=== PATIENT | male | born 1980 | race Caucasian/White ===

== ENCOUNTER 2017-03-23 02:42 | Emergency (ER) | payer OTHER ==
[2017-03-23 02:50] VITALS: RESP 18
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
--- NOTE | 2017-03-23 03:14 | XR ---
EXAM: XR Left Ribs and AP Chest, 3 or More Views CLINICAL HISTORY: Reason: trauma TECHNIQUE: Frontal and oblique views of the left ribs and frontal view of the chest. COMPARISON: No relevant prior studies available. FINDINGS: Lungs: Unremarkable. No consolidation. Pleural space: Unremarkable. No pneumothorax. Heart: Unremarkable. No cardiomegaly. Mediastinum: Unremarkable. Bones/joints: Unremarkable. No acute fracture. IMPRESSION: No acute or healing fracture or malalignment. No acute cardio pulmonary disease.
[2017-03-23 04:07] VITALS: BP 134/56; PULSE 56; TEMP 97.5
== END 2017-03-23 04:07 | disposition home or self-care (01) ==
LOC: EC 02:42
DX: S29.9XXA Unspecified injury of thorax, initial encounter (principal); V18.4XXA Pedal cycle driver injured in noncollision transport accident in traffic accident, initial encounter; Y93.55 Activity, bike riding; F17.200 Nicotine dependence, unspecified, uncomplicated
CPT/HCPCS: 93005; 99285

== ENCOUNTER 2018-02-17 17:35 | Emergency (ER) | payer BC, OTHER ==
[2018-02-17] MEDS ORDERED: SODIUM CHLORIDE 0.9% 1,000 ML IV STA ×2 (17:52)
[2018-02-17] MEDS ORDERED: ALBUTEROL NEBULIZED 2.5 MG/3 ML INHALATION STA (17:54)
--- NOTE | 2018-02-17 17:58 | ED ---
Chest Pain HPI - General Chief Complaint: Chest Pain Stated Complaint: Chest pain/sob Time Seen by Provider: 02/17/18 17:42 Source: patient, RN notes reviewed, old records reviewed Mode of arrival: ambulatory Limitations: no limitations - History of Present Illness Initial Comments: This patient is a 38-year-old male chief complaint of intermittent shortness of breath episodes for the past 3 weeks. He states that he has no significant chest pain at this time. He reports that when he does have this episodes of difficulty breathing he starts some tightness in his chest. Patient states that he cannot figure out a pattern to this. He states that it feels like at times he is unable to get a full deep breath. No previous history of asthma. Denies any cardiac history. He was a previous smoker and quit a few years ago. He occasionally will smoke a cigar from time to time this time. Patient states that he has no history of nausea, vomiting, diaphoresis, abdominal pain, changes in urination or bowel habits. He reports he has no headache, sore throat or sinus congestion. He reports he occasionally does have a cough. - Related Data Previous Rx's Medication Instructions Recorded Albuterol Inhaler [Ventolin Hfa 1 - 2 puff INHALATION Q6HR PRN #1 02/17/18 Inhaler] inhaler methylPREDNISolone Dose Pack 4 mg PO DIRECTED #21 package 02/17/18 [Medrol Dose Pack] Allergies Allergy/AdvReac Type Severity Reaction Status Date / Time No Known Allergies Allergy Verified 02/17/18 18:04 Review of Systems ROS Statement: Those systems with pertinent positive or pertinent negative responses have been documented in the HPI. ROS Other: All systems not noted in ROS Statement are negative. EKG Findings - EKG Comments: EKG Findings:: EKG shows normal sinus rhythm, ventricular rate of 65 beats were minute. AL interval 154 ms. QRS duration 110 ms. QT QTc is 394/409 ms. No evidence of ST elevation or T-wave inversion. No notes of atrioventricular ventricular arrhythmias. Past Medical History Past Medical History: No Reported History History of Any Multi-Drug Resistant Organisms: None Reported Past Surgical History: Orthopedic Surgery Additional Past Surgical History / Comment(s): left shoulder Past Psychological History: No Psychological Hx Reported Smoking Status: Former smoker Past Alcohol Use History: Occasional Past Drug Use History: None Reported General Exam - General Exam Comments Initial Comments: This is a well-appearing 38-year-old male. No distress. Limitations: no limitations General appearance: alert, in no apparent distress Head exam: Present: atraumatic, normocephalic, normal inspection Eye exam: Present: normal appearance, PERRL, EOMI. Absent: scleral icterus, conjunctival injection, periorbital swelling ENT exam: Present: normal exam, mucous membranes moist Neck exam: Present: normal inspection. Absent: tenderness, meningismus, lymphadenopathy Respiratory exam: Present: decreased breath sounds (Decreased breath sounds on the left lung.). Absent: normal lung sounds bilaterally, respiratory distress, wheezes, rales, rhonchi, stridor Cardiovascular Exam: Present: regular rate, normal rhythm, normal heart sounds. Absent: systolic murmur, diastolic murmur, rubs, gallop, clicks GI/Abdominal exam: Present: soft, normal bowel sounds. Absent: distended, tenderness, guarding, rebound, rigid Extremities exam: Present: normal inspection, full ROM, normal capillary refill. Absent: tenderness, pedal edema, joint swelling, calf tenderness Back exam: Present: normal inspection Neurological exam: Present: alert, oriented X3, CN II-XII intact Psychiatric exam: Present: normal affect, normal mood Skin exam: Present: warm, dry, intact, normal color. 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 Patient states he has no significant chest pain at this time. His reports that occasionally filling continue the deep breath. Patient has a previous history of smoking. Chest x-ray shows no acute process. Patient's labwork was reviewed and negative for any significant amount of speed a negative troponin. Negative dimer. EKG shows no significant changes. Patient reports he feels better after receiving the breathing treatment. Discussed at this time patient likely has reactive asthmatic. Patient will be on steroids. We'll give the patient albuterol inhaler. Discussed appropriate follow-up with primary care physicians. Patient is history plan will comply. Return parameters were discussed. Disposition Clinical Impression: Dyspnea Disposition: HOME SELF-CARE Condition: Good Instructions: Dyspnea (ED) Additional Instructions: Patient advised to follow-up with primary care physician. Take the inhaler and use steroids as directed. Return to emergency department if any alarming signs or symptoms occur. Prescriptions: Albuterol Inhaler [Ventolin Hfa Inhaler] 1 - 2 puff INHALATION Q6HR PRN #1 inhaler PRN Reason: Shortness Of Breath methylPREDNISolone Dose Pack [Medrol Dose Pack] 4 mg PO DIRECTED #21 package Referrals: Amarjit Ochoa DO [Primary Care Provider] - 1-2 days Time of Disposition: 19:37
[2018-02-17 18:23] LABS: Basophils # (A) 0.1 k/uL (0-0.2); Basophils % (A) 1 %; Eosinophils # (A) 0.2 k/uL (0-0.7); Eosinophils % (A) 2 %; HCT 44.5 % (39.0-53.0); HGB 16.1 gm/dL (13.0-17.5); Lymphocytes # (A) 1.4 k/uL (1.0-4.8); Lymphocytes % (A) 16 %; MCH 31.3 pg (25.0-35.0); MCHC 36.1 g/dL (31.0-37.0); MCV 86.6 fL (80.0-100.0); Mean Platelet Volume 7.1; Monocytes # (A) 0.5 k/uL (0-1.0); Monocytes % (A) 6 %; Neutrophils # (A) 6.4 k/uL (1.3-7.7); Neutrophils % (A) 74 %; Platelet Count 189 k/uL (150-450); RBC 5.13 m/uL (4.30-5.90); RDW 12.4 % (11.5-15.5); WBC 8.6 k/uL (3.8-10.6)
[2018-02-17 18:33] LABS: ALT 45 U/L (21-72); AST 23 U/L (17-59); Albumin 4.6 g/dL (3.5-5.0); Alkaline Phosphatase 85 U/L (38-126); Anion Gap 16 mmol/L; Blood Urea Nitrogen 17 mg/dL (9-20); Carbon Dioxide 28 mmol/L (22-30); Chloride 101 mmol/L (98-107); D-Dimer 0.2 mg/L FEU (<0.60); Glucose 103 mg/dL (74-99); Magnesium 1.9 mg/dL (1.6-2.3); Potassium 3.9 mmol/L (3.5-5.1); Sodium 145 mmol/L (137-145); Total Bilirubin 0.6 mg/dL (0.2-1.3); Total Protein 7.6 g/dL (6.3-8.2)
[2018-02-17 18:38] LABS: Partial Thromboplastin Time 23.1 sec (22.0-30.0); Prothrombin Time 9.6 sec (9.0-12.0)
--- NOTE | 2018-02-17 19:17 | XR ---
EXAMINATION: XR chest 2V DATE AND TIME: 02/17/2018 6:54 PM ORDERING PROVIDER: Minerva Eastman CLINICAL INDICATION: Chest Pain TECHNIQUE: PA and lateral COMPARISON: None. DESCRIPTION: The lungs are clear. The pleural spaces are negative. The cardiac silhouette is not enlarged. The mediastinal and pleural silhouettes are unremarkable. The skeletal structures are intact without focal findings. The soft tissues are unremarkable. IMPRESSION: NO ACUTE PROCESS.
[2018-02-17 19:33] VITALS: BP 143/77; PULSE 63; RESP 18
[2018-02-17 19:46] VITALS: TEMP 98.1
== END 2018-02-17 19:48 | disposition home or self-care (01) ==
LOC: EC 17:35
DX: R06.02 Shortness of breath (principal); R07.9 Chest pain, unspecified; R05 Cough; Z87.891 Personal history of nicotine dependence
CPT/HCPCS: 36415; 71046; 80053; 83735; 84484; 85025; 85379; 85610; 85730; 93005; 94640; 96360; 96361; 99285

== ENCOUNTER → 2018-12-10 | Outpatient (CLI) | payer BC ==
--- NOTE | 2018-12-10 14:45 | PN ---
PROGRESS NOTE A 38-year-old male patient was seen in consultation because of chronic insomnia. Back then, the patient reported difficulty in sleep initiation and maintenance. His symptoms of chronic insomnia has been going on since the teenage years. His symptoms have got worse and based on that, the patient was referred to me. During my evaluation, I had a suspicion for obstructive sleep apnea. Based on that, I ordered a home sleep study that showed mild DERECK with an AHI of 9.6, slightly worse in the supine body position body position with an AHI of 14.6. No major nocturnal oxygen desaturation encountered. The patient was started on 10 mg of Ambien for sleep induction and maintenance. He responded very nicely to the Ambien. He is able to initiate and maintain sleep without any major difficulties. No major hypersomnia or sleepiness during the day. He seems to be more accurate in terms of a sleep cycle. He is at the point where he is taking his Ambien only twice a week. He tries to go to bed without taking the medication. However, if he is unable to initiate sleep, he will take a tablet of Ambien. No sleepwalking. No undue side effects related to the medication. No history of substance abuse. No history of alcoholism. No history of anxiety. No history of any traumatic events. No PTSD. No bipolar disorder. No other formal psychiatric disorder. PHYSICAL EXAMINATION: BP is 129/72, pulse 80, respirations 16, temperature 98.7 saturation 96% on room air. GENERAL APPEARANCE: Calm, comfortable. Head is atraumatic, normocephalic. NECK: Supple. No JVD, no goiter or neck masses. LUNGS: Clear to auscultation. HEART: Sounds regular rate and rhythm. Normal S1, S2. No S3, S4. No murmurs. ABDOMEN: Soft, nontender. No organomegaly. EXTREMITIES: No edema. No cyanosis or clubbing. IMPRESSION: 1. Chronic insomnia improving with behavior modification, sleep hygiene implementation and at the same time, the patient is using Ambien for sleep induction and maintenance on a p.r.n. basis. 2. Mild obstructive sleep apnea, apnea-hypopnea index of 9.6. 3. Mild nocturnal oxygen saturation. 4. Obesity. PLAN: 1. Encourage weight loss. 2. Continue maintaining good sleep hygiene measures. 3. Dropped the Ambien dose to 5 mg. The patient was given a 60 tablet supply that he will be taken on an as-needed basis for the sleep induction. 4. Avoid alcoholic beverages and caffeinated beverages late at night. 5. See me back in 6-8 months' time in followup. MMODL / IJN: [id number] /
== END | disposition home or self-care (01) ==
LOC: SLEEP 13:08
PROVIDERS: ATTEND Internal Medicine Critical Care Medicine
DX: Z53.9 Procedure and treatment not carried out, unspecified reason (principal)

== ENCOUNTER 2019-09-29 20:18 | Emergency (ER) | payer BC ==
--- NOTE | 2019-09-29 20:26 | ED ---
Chest Pain HPI - General Chief Complaint: Chest Pain Stated Complaint: Chest Pain Time Seen by Provider: 09/29/19 20:25 Source: patient, RN notes reviewed, old records reviewed Mode of arrival: ambulatory Limitations: no limitations - History of Present Illness Initial Comments: This is a 31-year-old male the ER patient presents today for evaluation of chest pain. Left and right-sided chest pain is been all 3 for a few months ago. Also blew the past week. taking a nap today was on his right [id number] to his left improvement in his right side of his pain left-sided his chest. patient is an ex-smoker of 6 years, occasional drinker with no other significant medical history takes no medications. patient denies history of high blood pressure cholesterol or diabetes. no family history of heart disease. patient has no shortness of breath ago episodes of swelling, exercise or activity intolerance is normal MD Complaint: chest pain (Atypical) -: month(s) Pain Location: left chest Pain Radiation: LUE Severity: moderate Severity scale (1-10): 4 Quality: heaviness Consistency: constant Improves With: nothing Worsens With: nothing Context: recent illness Other Symptoms: cough Treatments Prior to Arrival: none - Related Data Home Medications Medication Instructions Recorded Confirmed Zolpidem Tartrate [Ambien] 5 mg PO HS PRN 09/29/19 09/29/19 Allergies Allergy/AdvReac Type Severity Reaction Status Date / Time No Known Allergies Allergy Verified 09/29/19 20:41 Review of Systems ROS Statement: Those systems with pertinent positive or pertinent negative responses have been documented in the HPI. ROS Other: All systems not noted in ROS Statement are negative. EKG Findings - EKG Comments: EKG Findings:: EKG shows sinus rhythm rate of 64, PA 154, QRS 106, QTc 400 Past Medical History Past Medical History: No Reported History History of Any Multi-Drug Resistant Organisms: None Reported Past Surgical History: Orthopedic Surgery Additional Past Surgical History / Comment(s): left shoulder Past Psychological History: No Psychological Hx Reported Smoking Status: Former smoker Past Alcohol Use History: Occasional Past Drug Use History: None Reported General Exam Limitations: no limitations General appearance: alert, in no apparent distress Head exam: Present: atraumatic, normocephalic, normal inspection Eye exam: Present: normal appearance, PERRL, EOMI. Absent: scleral icterus, conjunctival injection, periorbital swelling ENT exam: Present: normal exam, mucous membranes moist Neck exam: Present: normal inspection. Absent: tenderness, meningismus, lymphadenopathy Respiratory exam: Present: normal lung sounds bilaterally. Absent: respiratory distress, wheezes, rales, rhonchi, stridor Cardiovascular Exam: Present: regular rate, normal rhythm, normal heart sounds. Absent: systolic murmur, diastolic murmur, rubs, gallop, clicks GI/Abdominal exam: Present: soft, normal bowel sounds. Absent: distended, tenderness, guarding, rebound, rigid Extremities exam: Present: normal inspection, full ROM, normal capillary refill. Absent: tenderness, pedal edema, joint swelling, calf tenderness Back exam: Present: normal inspection Neurological exam: Present: alert, oriented X3, CN II-XII intact Psychiatric exam: Present: normal affect, normal mood Skin exam: Present: warm, dry, intact, normal color. 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 Patient will be discharged home Disposition Clinical Impression: Atypical chest pain, Chest pain Disposition: HOME SELF-CARE Condition: Good Instructions (If sedation given, give patient instructions): Chest Pain (ED) Is patient prescribed a controlled substance at d/c from ED?: No Referrals: Amarjit Ochoa DO [Primary Care Provider] - 1-2 days
[2019-09-29] MEDS ORDERED: SODIUM CHLORIDE 0.9% 1,000 ML IV STA (20:54)
[2019-09-29 21:10] LABS: Basophils # (A) 0.2 k/uL (0-0.2); Basophils % (A) 2 %; Eosinophils # (A) 0.2 k/uL (0-0.7); Eosinophils % (A) 3 %; HCT 43.5 % (39.0-53.0); HGB 15.1 gm/dL (13.0-17.5); Lymphocytes # (A) 1.5 k/uL (1.0-4.8); Lymphocytes % (A) 21 %; MCH 30.6 pg (25.0-35.0); MCHC 34.8 g/dL (31.0-37.0); Mean Platelet Volume 6.1; Monocytes # (A) 0.5 k/uL (0-1.0); Monocytes % (A) 7 %; Neutrophils # (A) 4.7 k/uL (1.3-7.7); Neutrophils % (A) 65 %; Platelet Count 199 k/uL (150-450); RBC 4.94 m/uL (4.30-5.90); RDW 12.4 % (11.5-15.5); WBC 7.2 k/uL (3.8-10.6)
[2019-09-29 21:24] LABS: D-Dimer <0.17 mg/L FEU (<0.60); INR 0.9 (<1.2); Partial Thromboplastin Time 23.8 sec (22.0-30.0)
--- NOTE | 2019-09-29 21:26 | XR ---
EXAMINATION TYPE: XR chest 2V DATE OF EXAM: 09/29/2019 COMPARISON: Chest x-ray February 17, 2018. HISTORY: Chest pain. TECHNIQUE: Frontal and lateral views of the chest are obtained. FINDINGS: Overlying EKG leads are present. There is no focal air space opacity, pleural effusion, or pneumothorax seen. The cardiac silhouette size is within normal limits. The osseous structures are intact. IMPRESSION: No acute process.
[2019-09-29 21:38] LABS: African American GFR (CKD) >90 (>60 ml/min/1.73 sqM); Anion Gap 9 mmol/L; Blood Urea Nitrogen 20 mg/dL (9-20); Calcium 9.7 mg/dL (8.4-10.2); Carbon Dioxide 27 mmol/L (22-30); Chloride 103 mmol/L (98-107); Glucose 103 mg/dL (74-99); Magnesium 1.9 mg/dL (1.6-2.3); Potassium 4.1 mmol/L (3.5-5.1); Sodium 139 mmol/L (137-145); Total Protein 7.2 g/dL (6.3-8.2)
[2019-09-29 21:39] LABS: ALT 49 U/L (21-72); AST 27 U/L (17-59); Albumin 4.4 g/dL (3.5-5.0); Alkaline Phosphatase 59 U/L (38-126); Total Bilirubin 0.4 mg/dL (0.2-1.3)
[2019-09-29 22:42] VITALS: BP 140/83; PULSE 61; RESP 16; TEMP 98
== END 2019-09-29 22:51 | disposition home or self-care (01) ==
LOC: EC 20:18
DX: R07.89 Other chest pain (principal); M79.602 Pain in left arm; R05 Cough; Z87.891 Personal history of nicotine dependence
CPT/HCPCS: 36415; 71046; 80053; 83690; 83735; 83880; 84484; 85025; 85379; 85610; 85730; 93005; 96360; 99285

== ENCOUNTER → 2020-07-16 | Outpatient (CLI) | payer BC ==
--- NOTE | 2020-07-16 14:44 | US ---
EXAMINATION TYPE: US scrotum with doppler. Grayscale and color Doppler Duplex imaging performed of t he scrotum. DATE OF EXAM: 07/16/2020 COMPARISON: NONE CLINICAL HISTORY: N50.89 L TESTICULAR MASS. Patient states no complaints EXAM MEASUREMENTS: TESTICLES: Right Testicle: 5.1 x 4.2 x 3.0 cm Left Testicle: 5.5 x 3.6 x 2.7 cm EPIDIDYMIS HEAD: Right Epididymis: 1.1 x 1.2 x 0.9 cm Left Epididymis: 1.3 x 1.2 x 1.3 cm Doppler performed to assess for testicular vascularity; good bilateral color flow and waveforms are s een. There is no evidence of testicular torsion. Presence of hydroceles: no Presence of varicoceles: no No masses seen IMPRESSION: 1. No evidence of testicular mass.
== END | disposition home or self-care (01) ==
LOC: RADUSWWP 13:46
PROVIDERS: ATTEND Urology
DX: N50.89 Other specified disorders of the male genital organs (principal)
CPT/HCPCS: 76870; 93975

== ENCOUNTER → 2020-09-16 | Outpatient (CLI) | payer BC | END | disposition home or self-care (01) | LOC: LABWHC1 12:50 | PROVIDERS: ATTEND Internal Medicine Infectious Disease | DX: U07.1 COVID-19 (principal) | CPT/HCPCS: U0003; C9803 ==

== ENCOUNTER → 2021-10-07 | Outpatient (CLI) | payer BC ==
--- NOTE | 2021-10-08 15:26 | US ---
EXAMINATION TYPE: US scrotum with doppler. Grayscale and color Doppler Duplex imaging performed of t gillian scrotum. DATE OF EXAM: 10/07/2021 COMPARISON: US CLINICAL HISTORY: N50.89 Other specified disorders of the male organ. EXAM MEASUREMENTS: TESTICLES: Right Testicle: 4.8 x 3.0 x 3.5 cm Left Testicle: 5.1 x 2.2 x 3.5 cm EPIDIDYMIS HEAD: Right Epididymis: 1.2 cm Left Epididymis: 0.8 cm Doppler performed to assess for testicular vascularity; good bilateral color flow and waveforms are s een. There is no evidence of testicular torsion. Presence of hydroceles: Right measuring 1.8 x 0.7 x 1.9cm Presence of varicoceles: Somewhat dilated vessels on the left At patients lump is a hypoechoic oval structure measuring 1.1 x 0.8 x 1.1cm IMPRESSION: 1. Hypoechoic ill-defined nonvascular nodule at the palpable abnormality left hemiscrotum. 2. No suspicious testicular torsion.
== END | disposition home or self-care (01) ==
LOC: RADUSWWP 15:15
PROVIDERS: ATTEND Family Medicine
DX: N50.89 Other specified disorders of the male genital organs (principal); I86.1 Scrotal varices; N43.3 Hydrocele, unspecified
CPT/HCPCS: 76870; 93975

== ENCOUNTER → 2022-10-18 | Outpatient (CLI) | payer BC ==
--- NOTE | 2022-10-18 14:39 | US ---
EXAMINATION TYPE: US scrotum with doppler. Grayscale and color Doppler Duplex imaging performed of kamilla french scrotum. DATE OF EXAM: 10/18/2022 COMPARISON: US 2020 CLINICAL HISTORY: N50.819 TESTICULAR PAIN. Testicular pain on the right side. Patient feels lump on r ight side. Hx vasectomy 09/22/2022. EXAM MEASUREMENTS: TESTICLES: Right Testicle: 5.3 x 3.9 x 2.8 cm Left Testicle: 5.4 x 3.3 x 2.6 cm EPIDIDYMIS HEAD: Right Epididymis: 0.8 x 1.0 x 1.5 cm Left Epididymis: 0.6 x 1.6 x 1.1 cm Doppler performed to assess for testicular vascularity; bilateral color flow and waveforms are seen. Presence of hydroceles: Yes, right: 3.5 x 2.7 x 0.9 cm. Left: 2.3 x 1.8 x 0.7 cm. Presence of varicoceles: Prominent vessels seen bilaterally lateral to testicles. Prominent vessels also seen at patient's area of concern within the right groin adjacent to the right testicle measuring 4 mm. Inferior to the left testicle, hypoechoic area was seen: 1.2 x 1.5 x 1.0 cm. IMPRESSION: 1. Bilateral hydroceles. 2. Bilateral varicoceles.
== END | disposition home or self-care (01) ==
LOC: RADUSWWP 13:29
PROVIDERS: ATTEND Family Medicine
DX: N43.3 Hydrocele, unspecified (principal); I86.1 Scrotal varices
CPT/HCPCS: 76870; 93975

== ENCOUNTER → 2022-11-23 | Outpatient (CLI) | payer BC ==
--- NOTE | 2022-11-23 15:36 | US ---
EXAMINATION TYPE: US renals and bladder DATE OF EXAM: 11/23/2022 COMPARISON: NONE CLINICAL HISTORY: R319 HEMATURIA UNSP. Hematuria EXAM MEASUREMENTS: Right Kidney: 11.6 x 6.0 x 5.3 cm Left Kidney: 13.7 x 6.0 x 5.1 cm Right Kidney: No hydronephrosis or masses seen Left Kidney: Cystic area seen lower pole 1.3 x 1.0 x .8 cm. Bladder: Anechoic Bilateral Jets seen: Right only. IMPRESSION: 1. Simple appearing left renal cyst inferior pole
== END | disposition home or self-care (01) ==
LOC: RADUSWWP 14:32
PROVIDERS: ATTEND Family Medicine
DX: N28.1 Cyst of kidney, acquired (principal); R31.9 Hematuria, unspecified
CPT/HCPCS: 76770

== ENCOUNTER → 2022-12-27 | Outpatient (CLI) | payer BC ==
--- NOTE | 2022-12-27 12:00 | CT ---
EXAMINATION TYPE: CT urogram wo/w con CT DLP: 4133 mGycm, Automated exposure control for dose reduction was used. DATE OF EXAM: 12/27/2022 11:51 AM COMPARISON: Ultrasound 11/23/2022 CLINICAL INDICATION:Male, 42 years old with history of R31.0 Gross hematuria, Gross hematuria TECHNIQUE: Urogram with imaging of the abdomen and pelvis. Coronal and sagittal reformats were performed. 2D and 3D reconstructions are performed to assist visualization of the urinary tract on a separate workstat ion. Contrast used:100 ml mL of Isovue 300 with IV Contrast, Oral contrast used: None. FINDINGS: LOWER CHEST: No significant findings. GENITOURINARY: RIGHT KIDNEY AND URETER: Nonobstructing 5 mm calculus No hydronephrosis or hydroureter. No renal mass or other lesions. No urothelial lesions: no filling defect, dilation, stricture or wall thickening. LEFT KIDNEY AND URETER: Nonobstructing 2 mm density suggestive of early calculus. No hydronephrosis o r hydroureter. No renal mass, left renal cyst.. No urothelial lesions: no filling defect, dilation, s tricture or wall thickening. URINARY BLADDER: Focal abutting the right posterior aspect of the bladder suggestive of diverticula. 14 image 84. Limited evaluation of the anterior bladder wall secondary to lack of excreted IV contras t. REPRODUCTIVE: Unremarkable. ABDOMEN LIVER: Indeterminate low-density area within the right hepatic lobe somewhat tubular morphology. No e vidence of enhancement on postcontrast imaging. GALLBLADDER AND BILE DUCTS: Unremarkable PANCREAS: Unremarkable. SPLEEN: Unremarkable. ADRENAL GLANDS: Unremarkable. STOMACH AND BOWEL: . No evidence of bowel obstruction. PERITONEUM: No evidence of pneumoperitoneum, free fluid, or adenopathy. VASCULATURE: No evidence of aortic aneurysm. Scattered mild atherosclerosis of the arterial vasculatu re. MUSCULOSKELETAL: No acute osseous abnormalities LYMPH NODES: No gross evidence for lymphadenopathy. SOFT TISSUE/ABDOMINAL WALL: Fat-containing umbilical hernia. IMPRESSION: 1. No evidence of obstructive uropathy or urothelial lesion. 2. Nonobstructing bilateral renal calculi. 3. Focal right posterior extremity contrast outpouching suggestive of diverticula. 4. Indeterminate right hepatic lobe low-density somewhat lobulated area could represent clustered cy sts versus focal dilated ducts. Consider further evaluation with MRI liver mass protocol.
== END | disposition home or self-care (01) ==
LOC: RADCTMAIN 09:35
PROVIDERS: ATTEND Urology
DX: N20.0 Calculus of kidney (principal); R31.0 Gross hematuria
CPT/HCPCS: 74178; 74400; Q9967

== ENCOUNTER → 2023-05-04 | Outpatient (CLI) | payer BC ==
--- NOTE | 2023-05-04 23:28 | MR ---
EXAMINATION TYPE: MR abdomen wo/w con DATE OF EXAM: 05/04/2023 10:10 PM INDICATION: Patient age:Male; 43 years old; Reason for study: K76.9; [facility]. F/U, abnormal prior MRI & CT COMPARISON: CT scan abdomen from 12/27/2022, MRI 01/27/2023. TECHNIQUE: Multiplanar multi-sequence imaging was performed without contrast. Post contrast imaging was performed. Post IV contrast subtraction images were also submitted for review. IV Contrast: 12 cc Gadavist FINDINGS: LOWER CHEST: No gross irregularity. ABDOMEN Liver: Hepatic steatosis. Right hepatic lobe high T2 signal heterogenous loculated appearing lesion m easures similarly at 2.8 x 2.6 x 1.9 cm in segment 5/6 1 measuring similarly. Somewhat peripheral enh ancement with persistent cystic changes which do not enhance. Another high T2 area within the right hepatic lobe segment 8. Measuring 11 mm which progressively enh ances on delayed imaging. Gallbladder and Bile ducts: Unremarkable. Pancreas: Unremarkable. Spleen: Unremarkable. Adrenal glands: Unremarkable. Kidneys: High T2 signal cysts bilaterally. Stomach and Bowel: Unremarkable as visualized. Appendix is normal. Peritoneum: No evidence of pneumoperitoneum, free fluid, or adenopathy. High T2 signal posterior to the aorta tubular morphology could relate to dilated lymphatic drainage ducts. Vasculature: Unremarkable. No aortic aneurysm. Musculoskeletal: The osseous structures appear intact. Abdominal wall: Fat-containing umbilical hernia. IMPRESSION: 1. Stable right hepatic lobe segment 5/6 measuring 2.8 cm finding could could relate to biliary cyst adenoma , ductal stricture, cluster of cysts, hamartoma versus other. Correlate for primary sclerosin g cholangitis with serum markers. 2. Stable Hepatic segment 8, 11 mm hemangioma. 3. High T2 signal posterior to the aorta tubular morphology could relate to dilated lymphatic draina ge ducts.
== END | disposition home or self-care (01) ==
LOC: RADMRIMAIN 21:20
PROVIDERS: ATTEND Nurse Practitioner Family
DX: D18.03 Hemangioma of intra-abdominal structures (principal); K76.0 Fatty (change of) liver, not elsewhere classified; K42.9 Umbilical hernia without obstruction or gangrene; K76.89 Other specified diseases of liver
CPT/HCPCS: 74183; A9585

== ENCOUNTER → 2023-06-21 | Outpatient (CLI) | payer BC ==
--- NOTE | 2023-06-21 15:01 | US ---
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
== END | disposition home or self-care (01) ==
LOC: RADUSWWP 08:19
PROVIDERS: ATTEND Family Medicine
DX: I89.9 Noninfective disorder of lymphatic vessels and lymph nodes, unspecified (principal)
CPT/HCPCS: 76706

== ENCOUNTER → 2023-09-05 | Outpatient (CLI) | payer BC ==
--- NOTE | 2023-09-05 10:23 | US ---
EXAMINATION TYPE: US scrotum with doppler. Grayscale and color Doppler Duplex imaging performed of t he scrotum. DATE OF EXAM: 09/05/2023 COMPARISON: Multiple prior US CLINICAL INDICATION: Male, 43 years old with history of N43.3 HYDROCELE; F/U from prior scans, pt sta ping palpable lump left lower testicle EXAM MEASUREMENTS: TESTICLES: Right Testicle: 4.5 x 2.6 x 4.0 cm Left Testicle: 4.7 x 2.2 x 3.5 cm EPIDIDYMIS HEAD: Right Epididymis: 1.4 cm Left Epididymis: 1.2 cm Doppler performed to assess for testicular vascularity; good bilateral color flow and waveforms are s een. There is no evidence of testicular torsion. Presence of hydroceles: No Presence of varicoceles: No Hypoechoic area inferior to left testicle at pt's palpable= 1.2 x 1.1 x 1.3 cm, similar in appearance when compared to prior IMPRESSION: 1. Hypoechoic lesion inferior to the left testicle at the patient's palpable location is unchanged re lative to prior study. Clinical correlation advised.
== END | disposition home or self-care (01) ==
LOC: RADUSWWP 09:40
PROVIDERS: ATTEND Family Medicine
DX: N50.9 Disorder of male genital organs, unspecified (principal); N43.3 Hydrocele, unspecified
CPT/HCPCS: 76870; 93975

== ENCOUNTER → 2024-01-07 | Outpatient (CLI) | payer BC ==
--- NOTE | 2024-01-08 08:21 | XR ---
EXAMINATION TYPE: XR knee complete LT DATE OF EXAM: 01/07/2024 5:24 PM CLINICAL INDICATION:Male, 43 years old with history of [id number] PAIN IN LEFT KNEE; [facility] COMPARISON: None. TECHNIQUE: XR knee complete LT; examined in Frontal, lateral and oblique projections. FINDINGS: No evidence of any acute osseous pathology, soft tissue swelling, or joint effusion is no comfort. Joint spaces are preserved. No significant degeneration changes of the knee. IMPRESSION: 1. No acute osseous pathology. 2. No significant osteoarthritic changes.
== END | disposition home or self-care (01) ==
LOC: RADXRMAIN 17:04
PROVIDERS: ATTEND Family Medicine
DX: M25.562 Pain in left knee (principal)

== ENCOUNTER → 2024-02-06 | Outpatient (CLI) | payer BC ==
--- NOTE | 2024-02-06 14:50 | CT ---
EXAMINATION: CT SCAN OF THE PELVIS WITHOUT AND WITH INTRAVENOUS CONTRAST DATE OF EXAM: 02/06/2024 2:39 PM HISTORY: Localize enlarged lymph nodes in the inguinal region. COMPARISON: None. TECHNIQUE: CT examination of the pelvis was performed following without and with IV contrast. CT dose lowering techniques were used, to include: automated exposure control, adjustment for patient size, and/or use of iterative reconstruction. 100 mL of Isovue-[id number] was given intravenously. FINDINGS: PELVIS: GI Tract: Normal. (Note: Small and Large bowel are only partially imaged as portions located in th e abdomen are not included with Pelvis CT) Mesentery/Peritoneum: Normal. Vasculature: Normal. Lymph Nodes: Normal. Abdominal Wall: Normal. Bladder: Normal. Reproductive: Normal. Musculoskeletal: Normal. IMPRESSION: 1. No adenopathy identified on this examination. 2. No acute findings. Thank you for the referral of this patient. This exam was interpreted by an [employer] certified radiologist. If you have any questions a radiologist can be reached at [phone]. Slot [id number]
== END | disposition home or self-care (01) ==
LOC: RADCTMAIN 12:14
PROVIDERS: ATTEND Family Medicine
DX: R59.0 Localized enlarged lymph nodes (principal)
CPT/HCPCS: 72194; Q9967

== ENCOUNTER → 2024-04-22 | Outpatient (CLI) | payer BC ==
--- NOTE | 2024-04-23 19:36 | US ---
EXAMINATION TYPE: US scrotum with doppler. Grayscale and color Doppler Duplex imaging performed of kamilla french scrotum. DATE OF EXAM: 04/22/2024 COMPARISON: CLINICAL INDICATION: Male, 44 years old with history of N43.3 HYDROCELE, UNSPECIFIED; Follow up left testicular palp. Patient states he noticed it after vasectomy x 1.5-2 years ago. Pt thinks its gett ing smaller. EXAM MEASUREMENTS: TESTICLES: Right Testicle: 4.1 x 3.9 x 2.9 cm Left Testicle: 4.2 x 3.5 x 2.6 cm EPIDIDYMIS HEAD: Right Epididymis: 0.7 x 0.9 x 1.1 cm Left Epididymis: 0.9 x 0.9 x 1.0 cm Doppler performed to assess for testicular vascularity; good bilateral color flow and waveforms are s een. There is no evidence of testicular torsion. Presence of hydroceles: small bilateral Presence of varicoceles: no Left scrotal inferior palpable = 1.3 x 1.2 x 1.2 cm Right testicular appendix= 0.4 x 0.4 x 0.5 cm with cystic appearing lesion = 0.6 cm IMPRESSION: 1. Small bilateral hydroceles. 2. Cysts within the right testicular appendage.
== END | disposition home or self-care (01) ==
LOC: RADUSWWP 14:08
PROVIDERS: ATTEND Family Medicine
DX: N43.3 Hydrocele, unspecified (principal); N50.89 Other specified disorders of the male genital organs
CPT/HCPCS: 76870; 93975

== ENCOUNTER → 2025-03-11 | Outpatient (CLI) | payer BC ==
--- NOTE | 2025-03-11 21:37 | US ---
EXAMINATION TYPE: US scrotum with doppler. DATE OF EXAM: 03/11/2025 COMPARISON: 04/22/2024 CLINICAL INDICATION: Male, 45 years old with history of N50.812 LEFT TESTICULAR PAIN; Persistent lump inferior left testicle TECHNIQUE: Grayscale, color Doppler and spectral Doppler imaging of the scrotum. FINDINGS: EXAM MEASUREMENTS: TESTICLES: Right Testicle: 4.5 x 3.1 x 3.7 cm Left Testicle: 4.5 x 2.7 x 3.6 cm EPIDIDYMIS HEAD: Right Epididymis: 0.9 x 1.4 x 1.1 cm. Possible 5 mm echogenic scrotal fawn just adjacent, unchanged . In addition, there is a 7 mm multicystic lesion just adjacent as well, also unchanged. Left Epididymis: 1.0 x 0.8 x 1.2 cm. Round hypoechoic area in the tail of the epididymis measuring 1 .5 x 1.4 x 1.3 cm. In comparison to 1.3 x 1.2 x 1.2 cm, previously. Posterior through transmission an d no internal vascularity. Possibly cystic lesion. Doppler performed to assess for testicular vascularity; good bilateral color flow and spectral wavefo alia are seen. There is no evidence of testicular torsion. Presence of hydroceles: No Presence of varicoceles: No IMPRESSION: 1. No sonographic evidence for testicular torsion or epididymoorchitis. 2. Unchanged 5 mm probable scrotal fawn on the right. A 7 mm cystic area just adjacent to the right epididymal head also remains unchanged. Etiology unclear. Consider urology referral to determine any subsequent follow-up. 3. A 1.5 cm round lesion at the tail of the left epididymis also remains unchanged. Possible cystic l esion with thickened internal material such as a cystadenoma. Granuloma also possible. Consider annua l surveillance follow-up. [facility], , 03/11/2025 9:35 PM
== END | disposition home or self-care (01) ==
LOC: RADUSWWP 15:22
PROVIDERS: ATTEND Family Medicine
DX: N50.3 Cyst of epididymis (principal)
CPT/HCPCS: 76870; 93975